=== PATIENT | female | born 1985 | race Caucasian/White ===

== ENCOUNTER 2024-03-23 13:04 | Outpatient (RCR) | payer OTHER, SELFPAY ==
--- NOTE | 2024-03-30 16:12 | MHC.SP.ADU ---
Referring provider: Amber TILLMAN Reason for Referral: Vocal Cord Nodules Type of Treatment: 19538 Behavioral and Qualitative Analysis of Voice and Resonance Date of Plan of Treatment: 03/23/24 Onset of Symptoms/Illness: 11/27/23 Date Treatment Started: 03/23/24 Medical Diagnosis: Vocal Cord Nodules Primary Speech Language Diagnosis: R49.0 Dysphonia Secondary Speech Language Diagnosis: History Kassie Schultz is a 38 year old woman who was sent by her ENT for a Voice evaluation due to diagnoses of vocal fold nodules, specifically: Left nodule at junction of anterior and mid 1/3 cord, reactive thickening of the right cord. Kassie reports that she has had discomfort and hoarseness for and extended period of time, which began after she had an episode of COVID 19 back in 2019. She had been to the ENT at least twice before her most recent visit in January in the interim years due to chronic hoarseness, but laryngoscopy on those previous visits evidenced normal function. She did have surgery for a deviated septum earlier, and as a result of the previous visits, she had treatment for both allergies and GERD, however she denies having any significant issues or symptoms for those conditions at this time. She does report having prolonged episodes of post nasal drip after colds and COVID. She reports that she keeps well hydrated throughout the day, and has no history of smoking. Symptomatically. she reports that she frequently loses her voice, and has most difficulty when reading aloud to her children or trying to communicate with co-workers when there is noise. 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 Medical History: Allergies Sinusitis Vocal Polyps/Nodules Voice Changes Medication List: Please see chart Recent Hospitalizations: No Respiratory Needs: Room Air Patient Orientation: Alert & Oriented x 4 Social History: Employment Status: [employer] Employed Highest level of education obtained: Completed some college Current Living Situation: Lives in private residence with her and two sons. Past Speech Language Therapy: None Other Therapies Seen in Current Calendar Year: None Reported Speech, Language, Cognition difficulties: Voice Comments: Kassie presents with a harsh/breathy vocal quality consistent with her diagnosed vocal nodules. Quality of Life: Excellent Patient Stated Goal of Speech-Language Therapy: Provide exercises and education to improve vocal quality/health. Assessment S Informal Voice Assessment: Voice Loudness: Normal Voice Nasal Resonance: Normal Voice Oral Resonance: Normal Voice Phonatory-based Quality: Breathy, Harsh, Hoarse, Loss of Voice Voice Pitch: Normal Clinical Impression: Impaired Clinicial Observations: Kassie presented as very pleasant and cooperative throughout the assessment, although she expressed evident frustration with her voice issues. In addition to consistently presenting with a harsh/hoarse/breathy vocal quality, she had periods of phonation breaks throughout the session. Kassie was administered the Consensus Auditory Perceptual Evaluation of Voice (CAPE-V). On this evaluation, Kassie demonstrated a mildly reduced ratio of voiceless v. voiced phonation (S/Z Ration) of .54, with noted phonation 'breaks as well as a moderately harsh breathy vocal quality when producing sustained continuous phonation of speech sounds. When producing normal speech, she similarly presented with a harsh/breathy vocal quality with episodic phonation breaks and loss of voice with extended speaking. Some mild muscular strain was noted when producing connected speech. On pitch variation, Kassie was able to produce pitch variety and range with some pitch breaks evident and hoarse vocal quality. Kassie presented with normal ability to sequence speech sounds when asked to produce diodochokinetic sequences (P/T/K), and otherwise presented with clear and articulate speech. Kassie's moderate hoarse/harsh vocal quality is consistent with vocal fold nodules observed on laryngoscopy by her ENT. Impressions and Recommendations Summary: Kassie presents with a moderate vocal impairment characterized by harsh/breathy vocal quality, breaks in phonation and loss of voice with fatigue secondary to diagnosed vocal nodules. It is recommended Kassie return for a period of voice therapy to focus on vocal health, vocal flow/breath support and relaxation strategies for improved vocal production. Impact on Daily Function/Activity Limitations: Daily Activities: Moderate Interpersonal Interactions: Moderate Education: Moderate Employment: Moderate Community: Moderate Prognosis for Improvement: Good Comment: Period of Voice therapy is recommended to determine if vocal pathology can be resolved s/s specialist medical intervention (surgery). Recommendation for Speech Therapy: Outpatient Speech Therapy Frequency/Duration: 1 weekly 45 minute session Date Range for Service Requested: 6-8 weeks Time to Reassess: PRN Data Warehousing Manager Goals: Nadiia will improve overall vocal quality and reduce vocal fatigue and strain during daily communication activities Short Term Goals: Goal # : 1.1 Nadiia will use relaxation strategies, including circular breathing, constructive rest, visualization techniques to reduce muscle tension demonstrating 80% independence on instructed techniques Goal Status: Goal# : 2.1 Nadiia will practice vocal flow exercises, including vowel initiation, easy onset of word, phrase and sentence length utterances with 80% accuracy Goal Status: Goal # : 3.1 Nadiia will produce adequate support for voice to sustain phonation of a sound for 10 seconds s/s phonation breaks or loss of voice 3.2 Nadiia will produce adequate support for voice to read paragraph length passage with adequate volume and phonation s/s breaks or loss of voice Goal Status: Goal # : 4.1 Nadiia will complete self observation/survey regarding vocal health, including hydration and vocal use. Goal Status: Patient Education: Completed: Yes Patient/Caregiver Education: Described Results of Evaluation Patient expressed understanding of evaluation Patient agrees with goals and treatment plan Comments/Barriers to Learning: Patient expressed a preference for surgical intervention v. voice therapy. Rubber Goods Supervisor Clinican/Clinical Fellow: No Supervisory Statement: N/A Speech Language Pathologist: Coby Chong M.A., CCC-GROUP HOME MANAGER
== END 2024-04-15 13:41 | disposition still patient (30) ==
LOC: HO.SH 13:04
PROVIDERS: PCP Pediatrics; Visit Provider Physician Assistant Medical
DX: R13.10 Dysphagia, unspecified (principal); R49.0 Dysphonia
CPT/HCPCS: 92524

== ENCOUNTER 2024-05-27 13:30 | Outpatient (RCR) | payer OTHER, SELFPAY ==
--- NOTE | 2024-06-16 13:59 | MHC.SL.SOA ---
Referring Provider: Amber TILLMAN Reason for Referral: Vocal Cord Nodules Date of Plan of Treatment:03/23/24 Onset of Symptoms/Illness:11/27/23 Date Treatment Started:03/23/24 Medical Diagnosis:Vocal Nodules Primary Speech Language Diagnosis:R49.0 Dysphonia Number of Authorized Visits Remaining: Reason for Visit:55908 Individual Treatment Subjective:This is an administrative discharge for Kassie Schultz. Kassie was evaluated on 03/23/24 after discovery of vocal fold nodules. She was seen for 4 visits from 04/29/24 - 05/27/24. Kassie was initially skeptical of how Speech Therapy could help her, but came around quickly and was effortful with her home education program. Objective: The following goals were addressed: 1.1 Kassie will use relaxation strategies, including circular breathing, constructive rest, visualization techniques to reduce muscle tension demonstrating 80% independence on instructed techniques 2.1 Kassie will practice vocal flow exercises, including vowel initiation, easy onset of word, phrase and sentence length utterances with 80% accuracy 3.1 Kassie will produce adequate support for voice to sustain phonation of a sound for 10 seconds s/s phonation breaks or loss of voice 3.2 Kassie will produce adequate support for voice to read paragraph length passage with adequate volume and phonation s/s breaks or loss of voice 4.1 Kassie will complete self observation/survey regarding vocal health, including hydration and vocal use. Assessment:Kassie was effortful in all tasks presented to her. She had trouble however with following all of the aspect of vocal hygiene that were suggested to her. For instance she only drinks 2-3 cups of water a day. To balance this SSRS DEVELOPER suggested she use a hydration supplement, such as Propel, to make up for some of the lost hydration. She was also unsure if she could commit to vocal rest with two small children. Significantly, during her time in therapy her children were in camp for 2 weeks. This gave her more opportunity for vocal rest and she and SSRS DEVELOPER agreed it made a positive difference. She was meant to have more visits, but by the end of the Summer it was difficult for her schedule. She reports she is seeking a second ENT opinion and her PCP requested a referral to [facility]. She is discharged with instructions for vocal hygiene and vocal rest and to continue to follow-up with ENT for vocal nodule reduction. Plan: Goal # : 1.1 Nadiia will use relaxation strategies, including circular breathing, constructive rest, visualization techniques to reduce muscle tension demonstrating 80% independence on instructed techniques Status of Goal: Discharge Goal Goal # : 2.1 Nadiia will practice vocal flow exercises, including vowel initiation, easy onset of word, phrase and sentence length utterances with 80% accuracy Status of Goal: Discharge Goal Goal # : 3.1 Nadiia will produce adequate support for voice to sustain phonation of a sound for 10 seconds s/s phonation breaks or loss of voice 3.2 Nadiia will produce adequate support for voice to read paragraph length passage with adequate volume and phonation s/s breaks or loss of voice Status of Goal: Discharge Goal Goal # : 4.1 Nadiia will complete self observation/survey regarding vocal health, including hydration and vocal use. Status of Goal: Discharge Goal Seen by: Graduate/Clinical Fellow: No Supervisory Statement: f_Reg Query Last Value , MHC.AU.SIGNATUR Speech Language Pathologist: Jason Grimes M.A., CCC-SSRS DEVELOPER
== END 2024-06-17 09:13 | disposition home or self-care (01) ==
LOC: HO.SH 13:30
PROVIDERS: PCP Pediatrics; Visit Provider Physician Assistant Medical
DX: R13.10 Dysphagia, unspecified (principal)
CPT/HCPCS: 92507